=== PATIENT | female | born 1975 | race Caucasian/White ===

== ENCOUNTER 2018-08-27 11:59 | Inpatient (IN) | payer OTHER ==
[~2018-08-27] VITALS: Ht 165.1 cm; Wt 82.1 kg
--- NOTE | ~2018-08-27 | HC ---
[facility] [place] [place] [address] CONSULTATION Name: TIN BAKER Room #: 454-P [facility] IN M.R.#: [id number] Admission: 08/27/18 ������������������ Attend Phys: Nathan Holman MD Discharge: 08/28/18 ������������������ Date of : 73 Report #: [id number] THIS REPORT FOR: //name// CC: FAM unknown Nathan Holman DATE OF SERVICE: 08/28/2018 INFECTIOUS DISEASE CONSULTATION REASON FOR CONSULTATION: Evaluation regarding right peritonsillar abscess. HISTORY OF PRESENT ILLNESS: The patient is a 42-year-old with underlying history of cardiomyopathy and recreational drug use. She has had a 5-day history of increased pain and swelling in her throat. She has had previous history of Strep pharyngitis infections, the last time she states is about 12 years ago. She was seen initially at [facility] and placed her on oral antibiotic therapy, although she did not fill the prescription and was brought in to the Emergency Room for further evaluation where she was found to have a peritonsillar abscess. This was incised and drained by Dr. Argueta yesterday without complications. She was placed on clindamycin. She has been afebrile and hemodynamically stable. Her pain is under control. She has had no difficulty swallowing. She wishes to return home. Her IV fell out. There has been no nausea, vomiting or diarrhea. She has had no cough or sputum production. She denies any rash or adenopathy. REVIEW OF SYSTEMS: A 10-point review of systems was negative other than what was described above. ALLERGIES: None. MEDICATIONS: As noted above including clindamycin. PAST MEDICAL HISTORY: Cardiomyopathy, appendectomy, right knee surgery, hypothyroidism, mitral valve regurgitation. FAMILY HISTORY: Noncontributory. SOCIAL HISTORY: Quit smoking about 3 months ago. No significant alcohol intake and does recreational drugs as noted above. PHYSICAL EXAMINATION: VITAL SIGNS: Afebrile and hemodynamically stable. GENERAL: She was alert and cooperative and pleasant, in no acute distress. She was able to sit up in bed without discomfort. SKIN: Without rash. She had no palpable adenopathy. [facility] [address] [place] [address] CONSULTATION Name: TIN BAKER Room #: 454-P [facility] IN M.R.#: [id number] Admission: 08/27/18 ������������������ Attend Phys: Nathan Holman MD Discharge: 08/28/18 ������������������ Date of : 73 Report #: [id number] HEENT: Eyes, without scleral icterus. Mouth with poor dentition. She had a swelling involving the right tonsillar region. No purulence identified. NECK: Supple. No tender anterior cervical adenopathy noted. LUNGS: Clear. HEART: Regular with a 1/6 systolic murmur heard at the apex. No gallop. ABDOMEN: Soft and nontender. EXTREMITIES: Without clubbing, cyanosis or edema. LABORATORY STUDIES: Reviewed. Cultures are pending. CT scan of the neck was reviewed. Surgical report reviewed. IMPRESSION: Right peritonsillar abscess, postoperative day #1 from drainage procedure. The patient has underlying cardiomyopathy and recreational drug use as noted on her drug screen. Clinically, she has improved significantly after drainage procedure. As recommended by ENT, she was to finish her IV antibiotic today and proceed to outpatient therapy, will follow up in 2 weeks. I would like her to be seen by her primary care physician within the next week to follow up a CBC to ensure that she is better. Local pain control and maintain hydration. ��������������������������������������������� ���������������������������������������� By: ��������������������������������������������� [id number] Qasim Sen MD /nt
[2018-08-27 11:59] VITALS: BP 109/73
[~2018-08-27 11:59] MED LIST: ACETAMINOPHEN650 M5 PO; ALDACTONE25 MG PO; ASPIR 8181 MG PO; CITRATE OF MAG296 ML PO; COLACE100 MG PO; COREG3.125 MG PO; COREG6.25 MG PO; CYCLOBENZAPRINE5 MG PO; LANOXIN 0.120.125 M1 PO; LASIX 40 MG TAB40 M2 PO; LEVAQUIN 750 M750 MG PO; LEVOTHYROXIN0.125 M1 PO; LEVOTHYROXINE 0.1 MG PO; LISINOPRIL5 MG PO; MIRALAX17 GM PO; OXYCODONE HCL 55 MG PO; PROVENTIL HFA6.7 G1 INH; VISTARIL50 MG PO
[2018-08-27 12:25] LABS: ABSOLUTE NEUTROPHILS 14.6 thou/uL (1.4-8.2); BASOPHILS 0.4 % (0.0-2.0); EOSINOPHILS 0.2 % (0.0-3.0); HEMATOCRIT 39.9 % (37.0-47.0); HEMOGLOBIN 13.7 gm/dL (12.0-15.0); LYMPHOCYTES 5.7 % (24.0-44.0); MCH 30.4 pg (26.0-34.0); MCHC 34.3 g/dL (28.0-37.0); MCV 88.7 fL (80.0-100.0); PLATELET COUNT 262 thou/uL (150-400); POLYS 83.7 % (36.0-66.0); RDW 13.5 % (10.5-14.5); WBC 17.4 thou/uL (4.0-11.0)
[2018-08-27 12:34] LABS: CALCIUM 9.3 mg/dL (8.5-10.1); CREATININE 1.1 mg/dL (0.6-1.0); POTASSIUM 3.8 mmol/L (3.5-5.1)
[2018-08-27 12:40] LABS: ALBUMIN 3.7 g/dL (3.4-5.0); TOTAL PROTEIN 7.6 g/dL (6.4-8.2)
[2018-08-27 13:48] LABS: URINE BILIRUBIN NEGATIVE (Negative); URINE BLOOD 1+ (Negative); URINE CLARITY CLEAR; URINE COLOR YELLOW; URINE GLUCOSE-RANDOM* NEGATIVE (Negative); URINE KETONES NEGATIVE (Negative); URINE LEUKOCYTES-REFLEX NEGATIVE (Negative); URINE NITRITE-REFLEX NEGATIVE (Negative); URINE PROTEIN (DIPSTICK) NEGATIVE (Negative); URINE SPECIFIC GRAVITY <= 1.005 (1.005-1.035)
[2018-08-27 13:57] LABS: CASTS None Seen /LPF (None Seen); SQUAMOUS >10 Many /LPF (0-3)
[2018-08-27 13:58] LABS: BACTERIA-REFLEX 1-9 Few /HPF (None Seen); CRYSTALS None Seen /LPF (None Seen); MUCUS 0-3 Light strn/LPF (None Seen); URINE RBC 0-2 Rare /HPF (0-2); URINE WBC-REFLEX 0-5 Rare /HPF (0-5)
[2018-08-27 14:36] LABS: AMP/METHAMP POSITIVE (Negative); BARBITURATES Negative (Negative); BENZODIAZEPINES POSITIVE (Negative); COCAINE Negative (Negative); METHADONE Negative (Negative); OPIATES POSITIVE (Negative); PCP Negative (Negative)
[2018-08-27 14:41] VITALS: BP 109/73
[2018-08-27 15:24] VITALS: BP 113/71; BP 117/68
[2018-08-27 16:24] VITALS: BP 114/69
--- NOTE | 2018-08-27 16:56 | NUR ---
Received pt from the OR, pt s asleep and hard to arouse for the admission and assesments. VS are stable. IVF started. Will monitor and complete once pt is more alert.
[2018-08-27 20:04] VITALS: BP 95/56
[2018-08-28] VITALS: BP 106/65
[2018-08-28 03:20] VITALS: BP 104/67
--- NOTE | 2018-08-28 05:14 | NUR ---
Pt. rested quietly at intervals during the night when checked on during frequent rounds. She has been up to the bathroom with assistance of one. Pt. did void without difficulty. She offers no c/o pain or discomfort. Bed alarm is on. No c/o shortness of air.
[2018-08-28 05:31] LABS: HEMATOCRIT 45.5 % (37.0-47.0); HEMOGLOBIN 15.1 gm/dL (12.0-15.0); MCH 30.6 pg (26.0-34.0); MCHC 33.2 g/dL (28.0-37.0); MCV 92.2 fL (80.0-100.0); RBC 4.93 mil/uL (4.20-5.00); RDW 13.6 % (10.5-14.5); WBC 17.4 thou/uL (4.0-11.0)
[2018-08-28 05:45] LABS: CREATININE 0.7 mg/dL (0.6-1.0); MAGNESIUM 2.3 mg/dL (1.8-2.4); POTASSIUM 4.7 mmol/L (3.5-5.1)
[2018-08-28 05:56] LABS: CALCIUM 8.9 mg/dL (8.5-10.1)
[2018-08-28 07:22] VITALS: BP 111/65
[2018-08-28] MEDS ORDERED: COREG6.25 MG PO (12:36)
[2018-08-28] MEDS ORDERED: PRINIVIL5 MG PO (12:36)
[2018-08-28] MEDS ORDERED: COLACE 100 MG100 MG PO (17:42)
[2018-08-28] MEDS ORDERED: CLEOCIN HCL150 MG PO (17:42)
[2018-08-28] MEDS ORDERED: SPIRONOLACTONE25 M1 PO (17:42)
[2018-08-28 18:14] VITALS: BP 111/65
[2018-08-28 18:18] VITALS: BP 111/65
[2018-08-28 18:26] VITALS: BP 111/65
--- NOTE | 2018-08-28 19:36 | O ---
[facility] [place] [address] [place] [address] OPERATIVE REPORT Name: TIN BAKER Room #: 454-P [facility] IN M.R.#: [id number] Admission: 08/27/18 ������������������ Attend Phys: Nathan Holman MD Discharge: 08/28/18 ������������������ Date of : 73 Report #: [id number] THIS REPORT FOR: //name// CC: FAM unknown Nathan Holman DATE OF SERVICE: 08/27/2018 SURGEON: Ehsan Argueta MD PREOPERATIVE DIAGNOSIS: Right peritonsillar abscess. POSTOPERATIVE DIAGNOSIS: Right peritonsillar abscess. OPERATION PERFORMED: Incision and drainage, right peritonsillar abscess. HISTORY: The patient is a 42-year-old female admitted via the Emergency Department today with a 5-day history of escalating sore throat, unilateral on the right side, now involving a referred otalgia. She has had difficulty swallowing and sleeping secondary to the pain. The patient was seen at [facility] 3 days ago and prescribed amoxicillin with hydrocodone, only filled them earlier today. She took 2 hydrocodone and 1 amoxicillin 30 minutes prior to admission. Her boyfriend brought her to the Emergency Room. Examination showed evidence of obvious right peritonsillar abscess. This was confirmed on a CT of the neck prior to me seeing her. Recommendations were made for incision and drainage. I also talked to them about the options at [facility] tonsillectomy. Preoperatively, the patient was seen by Anesthesia, who noted a severely poor ejection fraction of 15% on workup 2 years ago. The patient has been positive for opioids, methamphetamine and benzodiazepines. Anesthesia was concerned with her clinical status, tolerating a general anesthesia. For that reason, we talked about incision and drainage as a local procedure. The patient was brought to the Anesthesia Care Unit of the Operating Room. DESCRIPTION OF PROCEDURE: The patient was seen in the Preanesthesia Care Unit. Examination revealed an obvious right peritonsillar abscess with bulging of the palate and deviation of the uvula. I reviewed her CT scan preoperatively. This abscess was amenable to an incision and drainage under local anesthesia. For that reason, the patient was then prepped and draped sterilely and infiltrative anesthesia 1% Xylocaine with 1:100,000 heparin was done into the right peritonsillar area and tonsillar pillar after an appropriate period. Then, an incision was made a semilunar on the soft palate extending behind the tonsil into the peritonsillar space with immediate efflux of about 4-5 mL of claire pus. This was cultured for aerobe and anaerobe. Tonsil hemostat was introduced into the space and this was widely opened to provide for drainage. It was then [facility] [address] [address] OPERATIVE REPORT Name: TIN BAKER Room #: 454-P [facility] IN M.R.#: [id number] Admission: 08/27/18 ������������������ Attend Phys: Nathan Holman MD Discharge: 08/28/18 ������������������ Date of : 73 Report #: [id number] suctioned. The patient tolerated the procedure well. There were no complications. Blood loss was about 2 mL. The patient will be admitted by the hospitalist for monitoring overnight with anticipation of discharge in the morning. Written and verbal discharge instructions were discussed with her boyfriend. I would recommend discharge medications to include clindamycin 300 mg t.i.d. for 10 days, Phenergan suppository 25 mg 1 per rectum q. 4-6 hours p.r.n., Percocet 7.5/325 one to two 4-6 hours p.r.n. She was instructed on light activity and a soft diet. The patient may follow up with me in the office in 2 weeks postoperatively. ��������������������������������������������� <ELECTRONICALLY SIGNED> ���������������������������������������� By: Ehsan Argueta MD ��������������������������������������������� 08/28/18 1936 1550 99 Ehsan Argueta MD /nt
--- NOTE | 2018-08-28 19:36 | H ---
[facility] [place] [address] [place] [address] HISTORY AND PHYSICAL Name: TIN BAKER Room #: 454-P [facility] IN M.R.#: [id number] Admission: 08/27/18 ������������������ Attend Phys: Nathan Holman MD Discharge: 08/28/18 ������������������ Date of : 73 Report #: [id number] THIS REPORT FOR: //name// CC: FAM unknown Nathan Holman DATE OF SERVICE: 08/27/2018 PREOPERATIVE DIAGNOSIS: Right peritonsillar abscess. HISTORY OF PRESENT ILLNESS: The patient is a 42-year-old female admitted via the Emergency Department today with a 5-day history of an escalating unilateral sore throat on the right, now with referred otalgia. This had difficulty with dysphagia as well as poor sleeping secondary to the pain. She had been seen at [facility] 3 days ago, and again last night and was prescribed amoxicillin with hydrocodone. She only filled these earlier today. She was taken 2 hydrocodone and 1 amoxicillin about 30 minutes prior to presentation. Examination revealed an obvious peritonsillar abscess. This was confirmed on CT with a large abscess in the right peritonsillar space resulting in deviation of the tonsil and uvula. The patient on presentation was positive for benzodiazepines, methamphetamine and opioids on her drug screen. She was seen preoperatively by Anesthesia who was concerned with her significantly poor ejection fraction of about 15% on workup 2 years ago. The patient has not been seen on a regular basis in followup. Because of the drug findings as well as the poor ejection fraction, the anesthesia had felt uncomfortable with general anesthesia. For that reason, I discussed with the patient and her boyfriend options of incision and drainage under local anesthesia. The patient was brought to the Preanesthesia Care Unit where this procedure was done quickly and efficiently with incision and drainage of 4 mL of claire pus in the right peritonsillar space. PAST MEDICAL HISTORY: Significant for cardiomyopathy, ejection fraction 10-15% in 2013; history of congestive heart failure, history of appendectomy, history of right knee surgery, history of hypothyroidism, history of mitral valve regurgitation. The patient does not appear to see doctor on a regular basis. HOME MEDICATIONS: Reviewed in her EMR. DRUG ALLERGIES: None. SOCIAL HISTORY: She does use alcohol and tobacco. The patient is a recreational drug user and was positive on her drug screen for all tested. REVIEW OF SYSTEMS: She is complaining of dysphagia, right otalgia as well as some difficulty with breathing with his large mass. [address] [address] HISTORY AND PHYSICAL Name: TIN BAKER Room #: 454-P [facility]#: [id number] Admission: 08/27/18 ������������������ Attend Phys: Nathan Holman MD Discharge: 08/28/18 ������������������ Date of : 73 Report #: [id number] PHYSICAL EXAMINATION: GENERAL: Shows a well-developed 42-year-old female, appears older than her stated age. VITAL SIGNS: In the Emergency Room, pulse of 104, temperature of 37.0, blood pressure 109/73, respirations 16, and she is 97% on room air. HEENT: Normocephalic. Pupils are equal, round, reactive to light. Oral and nasal exam: Deviated septum to the left, dry oral cavity, obvious right peritonsillar abscess with deviation of the tonsil and uvula. NECK: Positive jugulodigastric adenopathy. No neck abscess. Trachea is midline. NEUROLOGIC: Cranial nerves 2-12 are otherwise intact. LUNGS: Clear. LABORATORY DATA: The patient's drug screen shows positive for opioids, methamphetamine, benzodiazepines, marijuana. Chemistries show sodium of 134, potassium of 3.8, chloride of 99, BUN of 19, creatinine of 1.1 and glucose of 122, and calcium of 9.3. Low liver function tests. Hemoglobin of 13.7 with a white count of 17,400 and platelet count of 262,000. CT of neck again reviewed showing a right peritonsillar abscess with pharyngeal edema. ASSESSMENT: 1. Right peritonsillar abscess of 5 days duration with escalating pain. The patient has been seen as an outpatient at [facility] just within the last 72 and 24 hours with failed outpatient therapy. 2. Severe cardiomyopathy, ejection fraction 10-15%. The patient is has not been followed on a regular basis. 3. Multiple drug positivity on drug screen including opioids, benzodiazepines, methamphetamine and marijuana. 4. Mitral valve regurgitation. PLAN: As the patient is a poor surgical candidate for general anesthesia, in discussion with anesthesia, I talked with the patient and her boyfriend about an incision and drainage under local anesthesia to be done in the anesthesia care unit. I reviewed the procedure and occasional term benefits and potential risks. They understand and decided proceed. The patient will be admitted overnight for monitoring with the hospitalist. I appreciate the consultation and ability to share in her care. ��������������������������������������������� <ELECTRONICALLY SIGNED> ���������������������������������������� By: Ehsan Argueta MD ��������������������������������������������� 08/28/18 1936 1557 1700 Ehsan Argueta MD /nt
--- NOTE | 2018-08-28 20:32 | NUR ---
PATIENT ALERT AND ORIENTED AFTER SLEEPING VERY WELL THROUGH THE NIGHT. PATIENT BECAME AGITATED THIS AM DUE TO NOT HAVE DENTURES AND CELL PHONE. SPOKE WITH PATIENT AND SHE CALMED DOWN BUT REQUEST TO DISCHARGE. PATIENT DISCHARGED IN STABLE CONDITION WITH ALL PERSONAL BELONGINGS DISCHARGE INSTRUCTIONS AND PRESCRIPTIONS. PATIENT BOYFRIENDJAIDA AT BESIDE IN AFTERNOON AND WAS PATIENT TRANSPORTATION HOME. PATIENT DAUGHTER AT BEDSIDE THIS AM.
== END 2018-08-28 18:35 | disposition home or self-care (01) | DRG 854 ==
LOC: ER 11:59 → EROBS 14:23 → TBA 15:25 → 4W 15:54
PROVIDERS: Physician Assistant; ADMIT Internal Medicine
PROC: 0C9P0ZZ Drainage of Tonsils, Open Approach (ICD-10-PCS; principal; 2018-08-27)
DX: A41.9 Sepsis, unspecified organism (principal); I42.9 Cardiomyopathy, unspecified; J36 Peritonsillar abscess; I50.22 Chronic systolic (congestive) heart failure; Z90.49 Acquired absence of other specified parts of digestive tract; E03.9 Hypothyroidism, unspecified; F12.90 Cannabis use, unspecified, uncomplicated; F13.10 Sedative, hypnotic or anxiolytic abuse, uncomplicated; I11.0 Hypertensive heart disease with heart failure; F15.10 Other stimulant abuse, uncomplicated; I34.0 Nonrheumatic mitral (valve) insufficiency; F17.210 Nicotine dependence, cigarettes, uncomplicated; Z79.82 Long term (current) use of aspirin; Z79.899 Other long term (current) drug therapy
CPT/HCPCS: 10045; 50101; 70005

== ENCOUNTER 2019-03-26 09:42 | Emergency (ER) | payer OTHER ==
[~2019-03-26] VITALS: Ht 165.1 cm; Wt 131.5 kg
[~2019-03-26 09:42] MED LIST changes: +CLEOCIN HCL150 MG PO; +COLACE 100 MG100 MG PO; +PRINIVIL5 MG PO; +SPIRONOLACTONE25 M1 PO
[2019-03-26 10:21] LABS: ABSOLUTE NEUTROPHILS 5.6 thou/uL (1.4-8.2); BASOPHILS 0.9 % (0.0-2.0); EOSINOPHILS 1.2 % (0.0-3.0); HEMATOCRIT 37.1 % (37.0-47.0); HEMOGLOBIN 12.4 gm/dL (12.0-15.0); LYMPHOCYTES 18.5 % (24.0-44.0); MCH 30.9 pg (26.0-34.0); MCHC 33.5 g/dL (28.0-37.0); MCV 92.1 fL (80.0-100.0); MONOCYTES 9.6 % (1.0-8.0); PLATELET COUNT 298 thou/uL (150-400); POLYS 69.8 % (36.0-66.0); RBC 4.03 mil/uL (4.20-5.00); RDW 13.8 % (10.5-14.5)
[2019-03-26 10:26] LABS: CALCIUM 8.9 mg/dL (8.5-10.1); CREATININE 1.3 mg/dL (0.6-1.0); POTASSIUM 3.7 mmol/L (3.5-5.1)
[2019-03-26 10:36] LABS: ALBUMIN 3.9 g/dL (3.4-5.0); TOTAL BILIRUBIN 0.9 mg/dL (<0.1-1.0); TROPONIN-I 0.18 ng/mL (<0.06)
[2019-03-26 10:45] LABS: DIRECT BILIRUBIN 0.2 mg/dL (<0.1-0.3)
[2019-03-26] MEDS ORDERED: SYNTHROID125 MC1 PO (14:02)
[2019-03-26 14:09] VITALS: BP 119/69
[2019-03-26] MEDS ORDERED: GUAIFEN-CODEINE10 ML PO (14:35)
--- NOTE | 2019-03-26 21:48 | EKG ---
[facility] [place] [address] [place] [address] ELECTROCARDIOGRAM REPORT Name: TIN BAKER Room #: DEP [place]#: [id number] Admission: 03/26/19 Attend Phys: Discharge: 03/26/19 Date of : 73 Report #: [id number] THIS REPORT FOR: //name// [facility] ED Test Date: 2019-03-26 Test Time: 09:52:02 Pat Name: TIN BAKER Department: Room: Gender: F Magnetic Healer: RAMSES : 1975 Requested By: Nanci Conway Order Number: [id number] MD: Tavon Alcazar Measurements Intervals [place] Rate: 117 P: 62 AK: 160 QRS: 42 QRSD: 75 T: 60 QT: 360 QTc: 503 Interpretive Statements Sinus tachycardia Poor R wave progression Nonspecific ST and T wave abnormality Prolonged QT interval Compared to ECG 03/17/2016 22:51:02 Nonspecific change in the ST and T-wave segments Electronically Signed On 03-26-2019 21:48:16 DIRECT CHILL CASTING OPERATOR by Tavon Alcazar [email or web address] <ELECTRONICALLY SIGNED> By: Tavon Alcazar MD, [facility] 03/26/19 2148 1 Tavon Alcazar MD, [facility] /EPI
== END 2019-03-26 14:09 | disposition home or self-care (01) ==
LOC: ER 09:42
PROVIDERS: Emergency Medicine
DX: K59.00 Constipation, unspecified (principal); R06.02 Shortness of breath; E03.9 Hypothyroidism, unspecified; R79.89 Other specified abnormal findings of blood chemistry; I50.9 Heart failure, unspecified; F17.210 Nicotine dependence, cigarettes, uncomplicated; Z79.899 Other long term (current) drug therapy; Z79.82 Long term (current) use of aspirin; Z90.49 Acquired absence of other specified parts of digestive tract; Z98.890 Other specified postprocedural states

== ENCOUNTER 2019-03-28 02:18 | Emergency (ER) | payer OTHER ==
[~2019-03-28] VITALS: Ht 165.1 cm; Wt 82.6 kg
[~2019-03-28 02:18] MED LIST changes: +GUAIFEN-CODEINE10 ML PO; +SYNTHROID125 MC1 PO
[2019-03-28 02:19] VITALS: BP 113/75
[2019-03-28 03:49] LABS: BE(vivo) 2.8 mmol/L (-2 to +3); HCO3 28.2 mmol/L (22.0-26.0); PCO2 VENOUS 46.6 mmHg (41.0-51.0); PO2 VENOUS 17.3 mmHg (35.0-45.0)
[2019-03-28 03:57] LABS: ABSOLUTE NEUTROPHILS 7.1 thou/uL (1.4-8.2); BASOPHILS 0.6 % (0.0-2.0); HEMATOCRIT 36.7 % (37.0-47.0); LYMPHOCYTES 12.1 % (24.0-44.0); MCH 30.2 pg (26.0-34.0); MCHC 32.8 g/dL (28.0-37.0); MCV 92.1 fL (80.0-100.0); MONOCYTES 11.4 % (1.0-8.0); PLATELET COUNT 271 thou/uL (150-400); POLYS 74.9 % (36.0-66.0); RBC 3.99 mil/uL (4.20-5.00); RDW 13.6 % (10.5-14.5); WBC 9.5 thou/uL (4.0-11.0)
[2019-03-28 04:04] LABS: CREATININE 1.1 mg/dL (0.6-1.0)
[2019-03-28 04:12] LABS: APTT 29.4 Seconds (24.5-32.8); INR 1.2; PROTIME 12.1 Seconds (9.3-11.4)
[2019-03-28 04:15] LABS: ALBUMIN 3.8 g/dL (3.4-5.0); MAGNESIUM 2.2 mg/dL (1.8-2.4); TOTAL BILIRUBIN 1.3 mg/dL (<0.1-1.0); TROPONIN-I 0.2 ng/mL (<0.06)
[2019-03-28 04:27] LABS: URINE BILIRUBIN NEGATIVE (Negative); URINE BLOOD TRACE (Negative); URINE CLARITY CLEAR; URINE COLOR YELLOW; URINE GLUCOSE-RANDOM* NEGATIVE (Negative); URINE KETONES NEGATIVE (Negative); URINE LEUKOCYTES-REFLEX NEGATIVE (Negative); URINE PROTEIN (DIPSTICK) NEGATIVE (Negative); URINE SPECIFIC GRAVITY <= 1.005 (1.005-1.035); URINE UROBILINOGEN 0.2 E.U./dl (0.2-1.0)
[2019-03-28 04:33] LABS: URINE NITRITE-REFLEX POSITIVE (Negative)
[2019-03-28 04:35] LABS: AMP/METHAMP POSITIVE (Negative); BARBITURATES Negative (Negative); BENZODIAZEPINES Negative (Negative); COCAINE Negative (Negative); METHADONE Negative (Negative); OPIATES POSITIVE (Negative); PCP Negative (Negative)
[2019-03-28 04:39] LABS: BACTERIA-REFLEX 1-9 Few /HPF (None Seen); CASTS None Seen /LPF (None Seen); CRYSTALS None Seen /LPF (None Seen); MUCUS 0-3 Light strn/LPF (None Seen); SQUAMOUS 0-3 Few /LPF (0-3); URINE RBC 0-2 Rare /HPF (0-2); URINE WBC-REFLEX 0-5 Rare /HPF (0-5)
[2019-03-28] MEDS ORDERED: ONDANSETRON ODT8 MG PO (06:33)
[2019-03-28] MEDS ORDERED: VENTOLIN HFA 1818 GM INH (06:33)
[2019-03-28 06:40] VITALS: BP 124/86
--- NOTE | 2019-03-28 08:15 | EKG ---
[address] [address] ELECTROCARDIOGRAM REPORT Name: TIN BAKER Room #: 170-10 ADM IN M.R.#: [id number] Admission: 03/28/19 Attend Phys: Rambo Rasmussen Discharge: Date of : 73 Report #: [id number] THIS REPORT FOR: //name// [facility] ED Test Date: 2019-03-28 Test Time: 03:58:02 Pat Name: TIN BAKER Department: Room: 170 Gender: F Rn Hemodialysis: ROMAN : 1975 Requested By: Qasim Murillo Order Number: [id number] MD: Jude Hendricks Measurements Intervals [place] Rate: 104 P: 57 [place]: 165 QRS: 10 QRSD: 73 T: 60 QT: 405 QTc: 533 Interpretive Statements Sinus tachycardia Left atrial enlargement Borderline T wave abnormalities Compared to ECG 03/26/2019 09:52:02 Electronically Signed On 03-28-2019 8:15:04 ABRASIVE WHEEL MOLDER by Jude Hendricks [email or web address] <ELECTRONICALLY SIGNED> By: Jude Hendricks MD 03/28/19 0815 357 7 Jude Hendricks MD /LAVELL
== END 2019-03-28 06:45 | disposition left against medical advice (07) ==
LOC: ER 02:18 → EROBS 04:38 → ER 04:38
PROVIDERS: Emergency Medicine
DX: I42.8 Other cardiomyopathies (principal); E03.9 Hypothyroidism, unspecified; R11.2 Nausea with vomiting, unspecified; R06.02 Shortness of breath; F15.10 Other stimulant abuse, uncomplicated; Z91.14 Patient's other noncompliance with medication regimen; I50.9 Heart failure, unspecified; F17.210 Nicotine dependence, cigarettes, uncomplicated; Z90.49 Acquired absence of other specified parts of digestive tract

== ENCOUNTER 2020-02-04 01:55 | Emergency (ER) | payer OTHER ==
[~2020-02-04] VITALS: Ht 165.1 cm; Wt 79.4 kg
[~2020-02-04 01:55] MED LIST changes: +ONDANSETRON ODT8 MG PO; +VENTOLIN HFA 1818 GM INH
[2020-02-04 01:59] VITALS: BP 122/81
[2020-02-04] MEDS ORDERED: NITROSTAT0.4 M1 SUBLING (02:06)
[2020-02-04 02:46] LABS: BASOPHILS 1.2 % (0.0-2.0); EOSINOPHILS 1.7 % (0.0-3.0); HEMATOCRIT 35.9 % (37.0-47.0); HEMOGLOBIN 11.9 gm/dL (12.0-15.0); LYMPHOCYTES 16.6 % (24.0-44.0); MCH 30.3 pg (26.0-34.0); MCHC 33.1 g/dL (28.0-37.0); MCV 91.5 fL (80.0-100.0); MONOCYTES 8.2 % (1.0-8.0); PLATELET COUNT 242 thou/uL (150-400); POLYS 72.3 % (36.0-66.0); RBC 3.93 mil/uL (4.20-5.00); RDW 13.5 % (10.5-14.5); WBC 9.6 thou/uL (4.0-11.0)
[2020-02-04 02:47] LABS: CALCIUM 8.2 mg/dL (8.5-10.1); CREATININE 1.2 mg/dL (0.6-1.0); POTASSIUM 3.2 mmol/L (3.5-5.1)
[2020-02-04 02:57] LABS: ALBUMIN 3.3 g/dL (3.4-5.0); MAGNESIUM 1.9 mg/dL (1.8-2.4); TOTAL BILIRUBIN 1.1 mg/dL (0.2-1.0); TOTAL PROTEIN 6.8 g/dL (6.4-8.2); TROPONIN-I 0.17 ng/mL (<0.06)
[2020-02-04 03:49] VITALS: BP 120/81
[2020-02-04 03:58] VITALS: BP 120/81
[2020-02-04 05:13] LABS: AMP/METHAMP POSITIVE (Negative); BARBITURATES Negative (Negative); BENZODIAZEPINES Negative (Negative); COCAINE Negative (Negative); METHADONE Negative (Negative); OPIATES Negative (Negative); PCP Negative (Negative)
[2020-02-04 08:42] VITALS: BP 124/88
--- NOTE | 2020-02-06 07:29 | EKG ---
[facility] [place] [place] [address] ELECTROCARDIOGRAM REPORT Name: TIN BAKER [id number] Admission: 02/04/20 Attend Phys: Discharge: 02/04/20 Date of : 73 Report #: [id number] THIS REPORT FOR: cc: DARRYL - Britany family physician/PCP DARRYL - Britany family physician/PCP Tavon Alcazar MD [facility] THIS REPORT FOR: //name// [facility] ED Test Date: 2020-02-04 Test Time: 02:11:38 Pat Name: TIN BAKER Department: Room: [facility] Gender: F Financial Specialist: mpak : 1975 Requested By: Meli Ashley Order Number: [id number] MD: Tavon Alcazar Measurements Intervals [place] Rate: 117 P: 8 GA: 174 QRS: 26 QRSD: 85 T: 159 QT: 342 QTc: 477 Interpretive Statements Sinus tachycardia Probable left atrial enlargement Nonspecific ST and T wave abnormality Borderline prolonged QT interval Compared to ECG 03/28/2019 03:58:02 No significant changes Electronically Signed On 02-06-2020 7:29:00 CDT by Tavon Alcazar [email or web address] <ELECTRONICALLY SIGNED> By: Tavon Alcazar MD, [facility] 02/06/20 0729 0 0 Tavon Alcazar MD, [facility] /EPI
== END 2020-02-04 04:04 | disposition left against medical advice (07) ==
LOC: ER 01:55 → EROBS 03:18 → ER 03:18
PROVIDERS: Student in an Organized Health Care Education/Training Program
DX: I11.0 Hypertensive heart disease with heart failure (principal); I50.21 Acute systolic (congestive) heart failure; R79.89 Other specified abnormal findings of blood chemistry; R06.00 Dyspnea, unspecified; I42.9 Cardiomyopathy, unspecified; E03.9 Hypothyroidism, unspecified; F15.10 Other stimulant abuse, uncomplicated; Z20.828 Contact with and (suspected) exposure to other viral communicable diseases; F17.210 Nicotine dependence, cigarettes, uncomplicated; Z90.49 Acquired absence of other specified parts of digestive tract; Z98.890 Other specified postprocedural states; Z79.899 Other long term (current) drug therapy; Z79.82 Long term (current) use of aspirin